=== PATIENT | female | born 1965 | race Caucasian/White ===

== ENCOUNTER 2019-07-12 07:25 | Day surgery (SDC) | payer MEDICARE, MEDICAID, SELFPAY ==
[2019-07-10 10:41] LABS: Basophils % 0.6 %; Eosinophils # 0.2 10^3/uL (0.0-0.8); Eosinophils % 2.1 %; Hematocrit 38.6 % (37.0-47.0); Lymphocytes # 2.6 10^3/uL (0.8-4.8); Mean Corpuscular HGB Conc 31.1 g/dL (30.0-36.0); Mean Corpuscular Hemoglobin 22.5 pg (28.0-34.0); Mean Corpuscular Volume 72.4 fL (81-99); Mean Platelet Volume 10.4 fL (7.4-10.4); Monocytes # 0.6 10^3/uL (0.2-0.9); Monocytes % 8.8 %; Neutrophils # 3.8 10^3/uL (1.8-7.7); Neutrophils % 52.2 %; Nucleated Red Blood Cells % 0 %; Platelet Count 194 10^3/cmm (130-400); Red Blood Count 5.33 10^6/uL (4.1-5.3); Red Cell Distribution Width 18.5 % (12.1-15.1); White Blood Count 7.3 10^3/uL (4.0-10.0)
[2019-07-10 10:44] LABS: INR 1.04 (0.8-1.2)
[2019-07-10 11:01] LABS: Anion Gap 16.5 (5-19); Blood Urea Nitrogen 19 mg/dL (6-20); Calcium 9.9 mg/Dl (8.6-10.0); Carbon Dioxide 25 mmol/L (22-29); Chloride 101 mmol/L (98-107); Glomerular Filtration Rate 65.5 mL/min (90-130); Glucose 119 mg/dL (74-109); Potassium 4.5 mmol/L (3.5-5.1); Sodium 138 mmol/L (136-145)
[2019-07-11 15:24] VITALS: BMI 30.9
[2019-07-12 08:04] VITALS: BP 102/64; BP 134/68; PULSE 56; RESP 14; TEMP 36.6; O2SAT 95; BMI 30.9
--- NOTE | 2019-07-12 08:16 | PC.NURSE ---
Patient with left subclavian stenosis. BP in left arm 102/64. BP in right 134/68.
--- NOTE | 2019-07-12 08:30 | XACV_ITS ---
Ht: 168 cm Wt: 87 kg BSA: 2.04 m2 Gender: Female : 1965 Any Known Allergies: Other Exam Priority: Routine Procedure(s): Procedure Description: Diagnostic procedure Procedure Description: Right Heart Catheterization Procedure Description: O2 saturation Diagnostic Cath Status: Elective Conclusions #1 H igh left side filling pressure PCWP 23mmHg #2 N ormal pulmonary artery pressure PA mean 24 mmHg #3 Mildly elevated right ventricle systolic pressure 54/8 with mean of 22 mmHg #4 Elevated right atrial pressure RA mean of 18 mmHgModerately reduced cardiac output by Ramesh 3 L/m, cardiac index mildly reduced 2.0 minute/m2No significant stepup or change in saturation among the chambers. Indication for right heart:Unexplained Shortness of breath/pulmonary hypertension on echo cardiogram. Pressures Phase:Rest RV : 54 mmHg / 8 mmHg / @ 2:51:00 AM PA : 54 mmHg / 21 mmHg ( 28 mmHg ) @ 2:49:00 AM 50 mmHg / 17 mmHg ( 24 mmHg ) @ 2:56:00 AM RA : a wave = v wave = mean = 18 mmHg @ 2:52:00 AM O2 Content Phase:Rest PA : O2 Content O2: 57.1 % @ 2:56:00 AM Saturations Phase:Rest AO : 92 % @ 2:49:00 AM RA : 59 % @ 2:54:00 AM RV : 57 % @ 2:53:00 AM PA : 57 % @ 2:56:00 AM Cardiac Output Phase:Rest Ramesh : 3 l/min @ 2:49:00 AM Ramesh Cardiac Index: 2 L/min/m2 @ 2:49:00 AM Clinical Evaluation EBL: 5mL-10mL Procedural Details Pre op diagnosis: pulmonary HTN. Mat RN discussed sedation with Dr Tran. For this procedure they will only use local. Wire inserted through IV catheter in right brachial vein. IV catheter removed over wire. Medication's Wasted: Other = fentanyl 100 mcg. Procedure Consent Obtained. Pre-Procedure Time Out. Identified patient by full name and date of as verbalized by the patient/guarantor. Does the consent match the physician's order: Yes. Accurate & Complete Informed Consent: Yes. Inpatient/Outpatient History & Physical on Chart: Yes. If H&P is completed, is and addenduem needed: No; If yes, is the addendum complete: N/A. Visualize and Verify Site with Patient/Guarantor: N/A. Relevant Radiology Images available: N/A. Pre-op teaching completed and patient verbalized understanding. The risks, benefits, and alternatives of sedation and/or procedure were discussed by physician. The patient agrees to continue. Procedure started. PERRLA. Strong, equal hand soybean grower bilaterally. Lungs clear x 5 lobes. IV Site on Arrival: 20 gauge in the left wrist. Correct patient, site and procedure confirmed by cath team. IV Fluids: 0.9% NaCl at KVO. 0 mL infused prior to cardiac cath technician. Pre Procedural Pulses: bilateral radial was 3+. right brachial was prepped with chloroprep then draped in the usual sterile fashion. Baseline sample Acquired. HR: 55 BPM. Physician notified. IV Site on Arrival: 20 gauge in the right anticubital. Physician arrived. Physician scrubbed in. Immediate Pre-Procedure Time Out. Correct Patient: Yes; Correct Procedure: Yes; Correct Site: Yes; Correct Patient Position: Yes; Correct Supplies: Yes; Dried Flammable Prep: Yes; Blood Products Available: N/A;. Lidocaine 1% infiltrated to the right brachial. [facility] MON catheter inserted. [facility] out. Physician scrubbed out. A Manual Compression was successful obtaining hemostatsis at the Right Brachial Vein insertion site. Sheath(s) removed and manual pressure held until hemostasis was achieved. Sterile 4x4 and Op-site applied to the puncture site. No oozing or hematoma noted. Post sheath removal instructions were given and the patient verbalized understanding. Post Procedure: Pulses reassessed and unchanged. PERRLA. Strong, equal hand soybean grower bilaterally. No VTE prophylaxis required. Medication's Wasted: Lidocaine 1% = 18 mL. Medication's Wasted: Other = versed 2 mg. Total IV fluids: 25 mL. Post-op diagnosis: CHF, pulmonary HTN. Complications: none. Estimated blood loss: 5mL-10mL. Procedure completed. Patient transferred by wheelchair to CPRU. Vital chart was stopped. Site: Right Brachial Vein Sheath Size: 6 Fr Hemostasis Method: Manual Compression Hemostasis Success: Successful I, the attending physician, have reviewed and verified all procedure medications. Yes, all medications given per verbal order History/Risk Factors Hypertension: Yes Dyslipidemia: Yes Diabetic Therapy: Oral Peripheral Arterial Disease (PAD): Yes Myocardial Infarction (AR): Yes Obesity: No Renal Disease: No Tobacco Use: Current/Recent(w/in 1 year) Prior Interventions PCI: Yes CABG: Yes Valve Surgery: No Date of PCI: 05/11/2019 Report Signatures Finalized by:Frida Tran MD on 07/25/2019 9:39:57 PM
[2019-07-12 09:10] VITALS: BP 139/75; PULSE 54; RESP 16; O2SAT 100
[2019-07-12 09:15] VITALS: BP 136/72; PULSE 50; RESP 18; O2SAT 100
[2019-07-12 09:30] VITALS: BP 160/74; PULSE 76; RESP 20; O2SAT 97
[2019-07-12 09:45] VITALS: BP 177/75; PULSE 70; RESP 21; O2SAT 98
[2019-07-12 10:00] VITALS: BP 167/72; PULSE 60; RESP 18; O2SAT 100
== END 2019-07-12 10:05 | disposition home or self-care (01) ==
PROVIDERS: Family Provider Family Medicine; PCP Family Medicine; Visit Provider Internal Medicine Cardiovascular Disease
DX: I25.10 Atherosclerotic heart disease of native coronary artery without angina pectoris (principal); F17.210 Nicotine dependence, cigarettes, uncomplicated; I10 Essential (primary) hypertension; I77.1 Stricture of artery; Z98.890 Other specified postprocedural states; I07.1 Rheumatic tricuspid insufficiency; I73.9 Peripheral vascular disease, unspecified; I27.20 Pulmonary hypertension, unspecified; Z95.1 Presence of aortocoronary bypass graft; E78.5 Hyperlipidemia, unspecified; E11.9 Type 2 diabetes mellitus without complications; J44.9 Chronic obstructive pulmonary disease, unspecified; I50.9 Heart failure, unspecified; I25.2 Old myocardial infarction; Z79.82 Long term (current) use of aspirin; F32.9 Major depressive disorder, single episode, unspecified; F41.9 Anxiety disorder, unspecified; Z79.891 Long term (current) use of opiate analgesic; Z79.02 Long term (current) use of antithrombotics/antiplatelets; Z95.5 Presence of coronary angioplasty implant and graft
CPT/HCPCS: 36415; 80048; 85025; 85610; 93451; C1751; C1769; C1894; J1644; J2001; J2250; J3010; J7030

== ENCOUNTER 2019-08-18 08:26 | Outpatient (CLI) | payer MEDICARE, MEDICAID, SELFPAY ==
--- NOTE | 2019-08-18 10:00 | CT_ITS ---
WS: [id number] CT CHEST WITHOUT INTRAVENOUS CONTRAST HISTORY: Exertional shortness of breath TECHNIQUE: Contiguous 5 mm axial imaging performed on the thorax. Coronal and sagittal reformats are submitted. All CT scans at [facility] use at least one of these dose optimization techniq ues: automated exposure control; mA and/or kV adjustment per patient size (includes targeted exams wh ere dose is matched to clinical indication); or iterative reconstruction. CONTRAST: None DLP: 1038.23 mGycm COMPARISON: None available. Lungs and central airway: Study is limited by breathing motion artifact. Moderate hyperexpansion of t he lungs. Mild diffuse haziness and interstitial thickening is likely related to the history of smoki ng. Several indeterminate nodules are identified. LEFT lower lobe ovoid nodule measures 4 mm, image 3 0 series 3. RIGHT fissural nodule is probably a lymph node measuring 5 mm. RIGHT lower lobe 4.1 mm no dule, image 33 series 3. Subpleural RIGHT lower lobe 5.0 mm nodule image 30 series 3. Pleura: Normal. No pleural effusion. Heart and pericardium: Moderate to severely enlarged heart chambers. Prior CABG. Heavy calcifications in the [place] coronary arteries. Pericardial calcification over the RIGHT atrium. Mediastinum and pavithra: No adenopathy. Calcified lymph nodes at the RIGHT hilum. Vessels: Mild atherosclerosis aorta. Pulmonary artery size appears enlarged but is limited by motion. Chest wall and lower neck: Prior CABG. Upper abdomen: Splenic and hepatic granulomata. Suprarenal calcifications in aorta. Osseous structures: Increase in thoracic kyphosis. Multilevel spondylitic changes. Alaina H, et al. Guidelines for Management of Incidental Pulmonary Nodules Detected on CT Images: F rom the Fleischner Society 2017. Radiology. 2017 Steve;284(1):228-243. CT/CT chest wo con 60580 IMPRESSION: 1. Chronic emphysema. 2. Bilateral lower lobe pulmonary nodules with the largest measuring 5 mm. Indeterminate solid pulmonary nodule measuring less than 6 mm. In a high-risk p atient with a solid nodule <6 mm, CT at 12 months is optional with stronger con sideration if there is suspicious nodule morphology and/or upper lobe location. 3. RIGHT atrial pericardium calcification.
[2019-08-18 10:27] VITALS: O2SAT 93; O2SAT 95
--- NOTE | 2019-08-18 13:11 | PFTS_ITS ---
Date of Study:08/18/2019 Date of Dictation: MECHANICS: Forced vital capacity (FVC) is mildly reduced. Forced expiratory volume in one second (FEV1) is mildly reduced. FEV1/FVC is normal. FLOW VOLUME LOOP: The flow volume loop reveals absence of initial peak expiratory flow. This could be effort related. LUNG VOLUMES: Total lung capacity (TLC) is normal. Residual volume (RV) is elevated. DIFFUSING CAPACITY FOR CARBON MONOXIDE: Normal. INTERPRETATION: The pulmonary function tests are consistent with mild nonspecific ventilatory limitation. Spirometry is consistent with mild restriction however the patient has normal total lung capacity. Given the presence of elevated residual volume, the patient most likely has a component of mild obstructive and restrictive defect. Given her history of previous smoking, the elevated residual volume is secondary to small airways disease. There is evidence of air trapping. Gas exchange (DLCO) is normal. MTDD
== END 2019-08-18 08:27 | disposition home or self-care (01) ==
PROVIDERS: Family Provider Family Medicine; PCP Family Medicine; Visit Provider Internal Medicine Critical Care Medicine
DX: J43.9 Emphysema, unspecified (principal); I31.1 Chronic constrictive pericarditis; R06.02 Shortness of breath; R91.8 Other nonspecific abnormal finding of lung field; Z95.1 Presence of aortocoronary bypass graft
CPT/HCPCS: 71250; 94060; 94726; 94729

== ENCOUNTER → 2019-12-14 08:14 | Outpatient (BNVA) | payer MEDICARE, MEDICAID, SELFPAY | PROVIDERS: Family Provider Family Medicine; PCP Family Medicine; Referring Provider Family Medicine; Visit Provider Anesthesiology Pain Medicine | DX: M54.41 Lumbago with sciatica, right side (principal); M54.42 Lumbago with sciatica, left side; M47.816 Spondylosis without myelopathy or radiculopathy, lumbar region; M54.9 Dorsalgia, unspecified; S46.009A Unspecified injury of muscle(s) and tendon(s) of the rotator cuff of unspecified shoulder, initial encounter; M54.16 Radiculopathy, lumbar region; X58.XXXA Exposure to other specified factors, initial encounter; M62.838 Other muscle spasm; F17.210 Nicotine dependence, cigarettes, uncomplicated; Z79.891 Long term (current) use of opiate analgesic | CPT/HCPCS: 99204; 99205 ==

== ENCOUNTER → 2019-12-18 14:17 | Outpatient (BNVA) | payer MEDICARE, MEDICAID, SELFPAY | PROVIDERS: Family Provider Family Medicine; PCP Family Medicine; Visit Provider Anesthesiology Pain Medicine | DX: M54.9 Dorsalgia, unspecified (principal); S46.009A Unspecified injury of muscle(s) and tendon(s) of the rotator cuff of unspecified shoulder, initial encounter; X58.XXXA Exposure to other specified factors, initial encounter; F17.210 Nicotine dependence, cigarettes, uncomplicated; Z79.891 Long term (current) use of opiate analgesic | CPT/HCPCS: 64418; J1030; J2001; J3490 ==